=== PATIENT | male | born 1985 | race Caucasian/White ===

== ENCOUNTER 2016-07-19 14:02 | Day surgery (SDC) | payer OTHER ==
[~2016-07-19] VITALS: Ht 175.3 cm; Wt 101.8 kg
[~2016-07-19 14:02] MED LIST: FentaNYL CITRATE-PF 100 MCG/2 ML VIAL IVP ONE; LIDOCAINE HCL 2%/EPI 1:200,000/PF 10 ML VIAL ONE; LIDOCAINE HCL/PF 2% 5 ML VIAL IM ONE; MIDAZOLAM HCL 2 MG/2 ML VIAL IVP ONE; PROPOFOL 1% 20 ML VIAL IVP ONE
[2016-07-19] MEDS ORDERED: CeFAZolin 2 GM/DEXTROSE 50 ML IV ONE ×2 (14:04→14:30)
[2016-07-19] MEDS ORDERED: RINGERS SOLUTION,LACTATED 1,000 ML IV ONE ×2 (14:04→14:30)
[2016-07-19] MEDS: BUPIVACAINE HCL/PF 0.5% 30 ML VIAL ONE ×2 (16:31→16:35)
[2016-07-19] MEDS ORDERED: IBUPROFEN 600 MG TABLET PO PRN (17:00)
[2016-07-19] MEDS ORDERED: ACETAMINOPHEN 500 MG TABLET PO PRN (17:00)
== END 2016-07-19 17:55 | disposition home or self-care (01) ==
LOC: SURGERY 14:02
PROVIDERS: ATTEND Surgery
DX: D21.11 Benign neoplasm of connective and other soft tissue of right upper limb, including shoulder (principal); E66.9 Obesity, unspecified
CPT/HCPCS: 23071; 88304; J0690; J2250; J2704; J3010; J3490 ×3; J7120